=== PATIENT | male | born 1950 | race Caucasian/White ===

== ENCOUNTER 2024-12-08 00:40 | Inpatient (IN) | payer BC ==
[~2024-12-08] VITALS: Ht 180.3 cm; Wt 111.1 kg
[2024-12-08 01:07] LABS: BASOPHILS # (AUTO) 0.1 K/UL (0.0-0.2); BASOPHILS % (AUTO) 0.5 % (0.0-2.0); EOSINOPHILS # (AUTO) 0.1 K/uL (0.0-0.7); EOSINOPHILS % (AUTO) 0.6 % (0.0-7.0); HEMOGLOBIN 13.5 g/dL (12.5-16.3); LYMPHOCYTES # (AUTO) 0.8 K/uL (0.8-4.8); LYMPHOCYTES % (AUTO) 6.6 % (20.5-51.5); MEAN CORPUSCULAR HEMOGLOBIN 27.4 uug (23.8-33.4); MEAN CORPUSCULAR HGB CONC 34 g/dL (32.5-36.3); MEAN CORPUSCULAR VOLUME 81.3 fL (73.0-96.2); MONOCYTES # (AUTO) 0.7 K/uL (0.1-1.30); MONOCYTES % (AUTO) 6.1 % (0.0-11.0); NEUTROPHILS # (AUTO) 10.1 K/uL (1.8-8.9); NEUTROPHILS % (AUTO) 86.2 % (38.5-71.5); PLATELET COUNT (AUTO) 196 K/uL (152-348); RED BLOOD CELL COUNT(AUTO) 4.92 MIL/uL (4.06-5.63); RED CELL DISTRIBUTION WIDTH 14.9 % (12.1-16.2); WHITE BLOOD COUNT (AUTO) 11.7 K/uL (3.6-10.2)
[2024-12-08] MEDS ORDERED: DICYCLOMINE HCL LIQ 10 MG/5 ML UDC ONE (01:14)
[2024-12-08] MEDS ORDERED: ONDANSETRON 4 MG/2 ML VIAL ONE (01:14)
[2024-12-08] MEDS: ONDANSETRON 4 MG/2 ML VIAL IV ONE (01:16)
[2024-12-08] MEDS: DICYCLOMINE HCL LIQ 10 MG/5 ML UDC PO ONE (01:16)
[2024-12-08] MEDS: IV NORMAL SALINE 1000 ML BAG IV ONE (01:16)
[2024-12-08 01:17] LABS: DIFFERENTIAL COMMENT 1
[2024-12-08 01:27] LABS: ALANINE AMINOTRANSFERASE 25 U/L (16-63); ALBUMIN 3.9 g/dL (3.4-5.0); ALKALINE PHOSPHATASE 54 U/L (50-136); ASPARTATE AMINOTRANSFERASE 18 U/L (15-37); BILIRUBIN,DIRECT 0.3 mg/dL (0.0-0.2); BILIRUBIN,TOTAL 1.3 mg/dL (0.2-1.0); CALCIUM 9.5 mg/dL (8.5-10.1); CARBON DIOXIDE 26 mmol/L (21-32); CHLORIDE 103 mmol/L (98-107); CREATININE 1.4 mg/dL (0.6-1.3); GLUCOSE 120 mg/dL (74-106); POTASSIUM 4.2 mmol/L (3.5-5.1); SODIUM SERUM 140 mmol/L (136-145); TOTAL PROTEIN, SERUM 7.1 g/dL (6.4-8.2); UREA NITROGEN, BLOOD 22 mg/dL (7-18)
[2024-12-08] MEDS ORDERED: ACETAMINOPHEN 325 MG TABLET PO PRN (03:15)
[2024-12-08] MEDS ORDERED: ONDANSETRON 4 MG/2 ML VIAL IV PRN (03:15)
[2024-12-08] MEDS ORDERED: REMEDY ESSENTIAL ZINC PASTE 113 GM TP PRN (03:15)
[2024-12-08] MEDS ORDERED: MAGNESIUM HYDROXIDE 30 ML LIQUID UDC PO PRN (03:15)
[2024-12-08 05:49] VITALS: BP 129/58; TEMP 98.2; O2SAT 98
[2024-12-08 06:38] LABS: BASOPHILS % (AUTO) 0.5 % (0.0-2.0); EOSINOPHILS % (AUTO) 0.6 % (0.0-7.0); HEMATOCRIT 35.1 % (36.7-47.1); HEMOGLOBIN 12.1 g/dL (12.5-16.3); LYMPHOCYTES # (AUTO) 0.8 K/uL (0.8-4.8); LYMPHOCYTES % (AUTO) 11.1 % (20.5-51.5); MEAN CORPUSCULAR HEMOGLOBIN 28.3 uug (23.8-33.4); MEAN CORPUSCULAR HGB CONC 35 g/dL (32.5-36.3); MONOCYTES # (AUTO) 0.5 K/uL (0.1-1.30); MONOCYTES % (AUTO) 6.7 % (0.0-11.0); NEUTROPHILS # (AUTO) 6.2 K/uL (1.8-8.9); NEUTROPHILS % (AUTO) 81.1 % (38.5-71.5); PLATELET COUNT (AUTO) 182 K/uL (152-348); RED BLOOD CELL COUNT(AUTO) 4.28 MIL/uL (4.06-5.63); RED CELL DISTRIBUTION WIDTH 14.9 % (12.1-16.2); WHITE BLOOD COUNT (AUTO) 7.6 K/uL (3.6-10.2)
[2024-12-08 07:01] LABS: CARBON DIOXIDE 26 mmol/L (21-32); CHLORIDE 104 mmol/L (98-107); CREATININE 1.3 mg/dL (0.6-1.3); GLUCOSE 108 mg/dL (74-106); NT-PRO BNP 163 pg/mL (0-125); PHOSPHOROUS 3.4 mg/dL (2.5-4.9); POTASSIUM 3.8 mmol/L (3.5-5.1); SODIUM SERUM 132 mmol/L (136-145); UREA NITROGEN, BLOOD 23 mg/dL (7-18)
[2024-12-08 07:23] LABS: DIFFERENTIAL COMMENT 1
[2024-12-08 07:50] VITALS: BP 117/67; TEMP 98.3; O2SAT 99
[2024-12-08] MEDS: IV NS 1000 ML 1,000 ML IV PRN (08:38)
[2024-12-08 11:24] VITALS: BP 102/57; TEMP 97.6; O2SAT 98
[2024-12-08] MEDS ORDERED: PANT40TA49 PO (12:36)
[2024-12-08] MEDS ORDERED: FLUO20CA42 PO (12:36)
[2024-12-08] MEDS ORDERED: ATOR10TA PO (12:36)
[2024-12-08] MEDS ORDERED: TAMS-3 PO (12:36)
[2024-12-08] MEDS ORDERED: DUTA0.5C37 PO (12:36)
[2024-12-08] MEDS ORDERED: MEMA5TAB PO (12:36)
[2024-12-08] MEDS ORDERED: OLME40TA12 PO (12:36)
[2024-12-08] MEDS ORDERED: METO-357 PO (12:36)
[2024-12-08 16:00] VITALS: BP 124/61; TEMP 97.4; O2SAT 98
[2024-12-08] MEDS ORDERED: IBAN150T16 PO (17:50)
[2024-12-08] MEDS: VANCOMYCIN IV 1,000 MG in IV DEXTROSE 5% 250 ML IV SCH (17:53)
[2024-12-08 19:52] VITALS: BP 117/64; TEMP 98.3; O2SAT 95
[2024-12-08] MEDS: ATORVASTATIN 10 MG TABLET PO SCH (21:41)
[2024-12-08] MEDS: TAMSULOSIN HCL 0.4 MG CAP.SR.24H PO SCH (21:41)
[2024-12-08] MEDS: PIPERACILLIN SODIUM/TAZOBACTAM 3.375 G in IV DEXTROSE 5% 50 ML IV SCH (21:42)
[2024-12-09] VITALS: BP 139/71; TEMP 98.7; O2SAT 97
[2024-12-09 04:00] VITALS: BP 142/75; TEMP 98.2; O2SAT 98
[2024-12-09] MEDS: PANTOPRAZOLE SODIUM 40 MG TABLET.DR PO SCH (06:30)
[2024-12-09 07:12] LABS: BASOPHILS % (AUTO) 0.9 % (0.0-2.0); EOSINOPHILS # (AUTO) 0.2 K/uL (0.0-0.7); EOSINOPHILS % (AUTO) 4.2 % (0.0-7.0); HEMATOCRIT 30.8 % (36.7-47.1); HEMOGLOBIN 10.9 g/dL (12.5-16.3); LYMPHOCYTES # (AUTO) 1.2 K/uL (0.8-4.8); LYMPHOCYTES % (AUTO) 20.4 % (20.5-51.5); MEAN CORPUSCULAR HEMOGLOBIN 28.7 uug (23.8-33.4); MEAN CORPUSCULAR HGB CONC 35 g/dL (32.5-36.3); MEAN CORPUSCULAR VOLUME 81.2 fL (73.0-96.2); MONOCYTES # (AUTO) 0.6 K/uL (0.1-1.30); MONOCYTES % (AUTO) 10.1 % (0.0-11.0); NEUTROPHILS # (AUTO) 3.7 K/uL (1.8-8.9); NEUTROPHILS % (AUTO) 64.4 % (38.5-71.5); PLATELET COUNT (AUTO) 145 K/uL (152-348); RED BLOOD CELL COUNT(AUTO) 3.79 MIL/uL (4.06-5.63); RED CELL DISTRIBUTION WIDTH 15.1 % (12.1-16.2); WHITE BLOOD COUNT (AUTO) 5.7 K/uL (3.6-10.2)
[2024-12-09 07:21] LABS: ALANINE AMINOTRANSFERASE 21 U/L (16-63); ALBUMIN 3.1 g/dL (3.4-5.0); ALKALINE PHOSPHATASE 45 U/L (50-136); ASPARTATE AMINOTRANSFERASE 12 U/L (15-37); BILIRUBIN,DIRECT 0.3 mg/dL (0.0-0.2); CALCIUM 8.4 mg/dL (8.5-10.1); CARBON DIOXIDE 25 mmol/L (21-32); CHLORIDE 103 mmol/L (98-107); CHOLESTEROL 115 mg/dL (<200); CREATININE 1.1 mg/dL (0.6-1.3); GLUCOSE 94 mg/dL (74-106); HDL CHOLESTEROL 63 mg/dL (40-60); MAGNESIUM 1.8 mg/dL (1.8-2.4); PHOSPHOROUS 3.7 mg/dL (2.5-4.9); POTASSIUM 3.6 mmol/L (3.5-5.1); SODIUM SERUM 140 mmol/L (136-145); TOTAL PROTEIN, SERUM 6.1 g/dL (6.4-8.2); TRIGLYCERIDES 116 MG/DL (30-150); UREA NITROGEN, BLOOD 17 mg/dL (7-18)
[2024-12-09 07:36] LABS: DIFFERENTIAL COMMENT 1
[2024-12-09 08:05] LABS: CREATINE KINASE, TOTAL 64 U/L (39-308)
[2024-12-09] MEDS: DUTASTERIDE 0.5 MG CAPSULE PO SCH (08:19)
[2024-12-09 08:32] LABS: THYROID STIMULATING HORMONE 2.091 mIU/mL (0.358-3.740)
[2024-12-09] MEDS: METOPROLOL SUCCINATE XL 50 MG TAB.SR.24H PO SCH (08:33)
[2024-12-09] MEDS: FLUOXETINE HCL 20 MG CAPSULE PO SCH (08:33)
[2024-12-09] MEDS: MEMANTINE HCL 5 MG TABLET PO SCH (08:33)
[2024-12-09 15:22] VITALS: BP 136/88; TEMP 97.8; O2SAT 95
[2024-12-09 19:30] VITALS: BP 142/88; TEMP 98.4; O2SAT 96
[2024-12-10] VITALS: BP 120/73; TEMP 97.4; O2SAT 95
[2024-12-10 04:00] VITALS: BP 137/85; TEMP 97.9; O2SAT 97
[2024-12-10 06:57] LABS: BASOPHILS % (AUTO) 0.8 % (0.0-2.0); EOSINOPHILS # (AUTO) 0.3 K/uL (0.0-0.7); EOSINOPHILS % (AUTO) 5.6 % (0.0-7.0); HEMATOCRIT 31.4 % (36.7-47.1); HEMOGLOBIN 11.1 g/dL (12.5-16.3); LYMPHOCYTES # (AUTO) 1.2 K/uL (0.8-4.8); LYMPHOCYTES % (AUTO) 20.2 % (20.5-51.5); MEAN CORPUSCULAR HEMOGLOBIN 28.7 uug (23.8-33.4); MEAN CORPUSCULAR HGB CONC 35 g/dL (32.5-36.3); MEAN CORPUSCULAR VOLUME 81.2 fL (73.0-96.2); MONOCYTES # (AUTO) 0.6 K/uL (0.1-1.30); MONOCYTES % (AUTO) 11.3 % (0.0-11.0); NEUTROPHILS # (AUTO) 3.6 K/uL (1.8-8.9); NEUTROPHILS % (AUTO) 62.1 % (38.5-71.5); PLATELET COUNT (AUTO) 133 K/uL (152-348); RED BLOOD CELL COUNT(AUTO) 3.87 MIL/uL (4.06-5.63); RED CELL DISTRIBUTION WIDTH 15.3 % (12.1-16.2); WHITE BLOOD COUNT (AUTO) 5.7 K/uL (3.6-10.2)
[2024-12-10 07:01] LABS: DIFFERENTIAL COMMENT 1
[2024-12-10 07:25] LABS: CALCIUM 8.6 mg/dL (8.5-10.1); CARBON DIOXIDE 26 mmol/L (21-32); CHLORIDE 105 mmol/L (98-107); GLUCOSE 91 mg/dL (74-106); MAGNESIUM 1.7 mg/dL (1.8-2.4); PHOSPHOROUS 3.4 mg/dL (2.5-4.9); POTASSIUM 3.5 mmol/L (3.5-5.1); SODIUM SERUM 140 mmol/L (136-145); UREA NITROGEN, BLOOD 14 mg/dL (7-18)
[2024-12-10 07:31] VITALS: BP 121/76; TEMP 97.6; O2SAT 96
[2024-12-10] MEDS: VANCOMYCIN HCL 1,500 MG in IV DEXTROSE 5% 500 ML IV SCH (09:03)
[2024-12-10 11:06] LABS: PTH, INTACT 14 pg/mL (15-65)
[2024-12-10 11:17] VITALS: BP 126/69; TEMP 97.5; O2SAT 97
[2024-12-10] MEDS ORDERED: TAMS-3 PO (15:22)
[2024-12-10] MEDS ORDERED: CLIN300C12 PO (15:22)
[2024-12-10 16:03] VITALS: BP 131/79; TEMP 97.6; O2SAT 95
[2024-12-10] MEDS: MAGNESIUM OXIDE 400 MG TABLET PO ONE (17:09)
[2024-12-14 08:09] LABS: A/G RATIO 1.3 (0.7-1.7); ALBUMIN 3.1 g/dL (2.9-4.4); ALPHA-1-GLOBULIN 0.2 g/dL (0.0-0.4); ALPHA-2-GLOBULIN 0.8 g/dL (0.4-1.0); BETA GLOBULIN 0.8 g/dL (0.7-1.3); GAMMA GLOBULIN 0.5 g/dL (0.4-1.8); GLOBULIN, TOTAL 2.4 g/dL (2.2-3.9); M-SPIKE Not Observed g/dL (Not Observed); PROTEIN, TOTAL 5.5 g/dL (6.0-8.5)
== END 2024-12-10 17:38 | disposition home or self-care (01) | DRG 312 ==
LOC: ER 00:47 → TELE3 04:50 → MEDSURG3 12-10 08:50
PROVIDERS: ADMIT Nurse Practitioner Family; ATTEND Internal Medicine
DX: I95.2 Hypotension due to drugs (principal); N17.0 Acute kidney failure with tubular necrosis; L03.115 Cellulitis of right lower limb; L03.116 Cellulitis of left lower limb; T44.6X5A Adverse effect of alpha-adrenoreceptor antagonists, initial encounter; Y92.89 Other specified places as the place of occurrence of the external cause; E86.0 Dehydration; E66.9 Obesity, unspecified; Z68.34 Body mass index [BMI] 34.0-34.9, adult; N40.0 Benign prostatic hyperplasia without lower urinary tract symptoms; E78.5 Hyperlipidemia, unspecified; I44.1 Atrioventricular block, second degree; R11.2 Nausea with vomiting, unspecified; T50.995A Adverse effect of other drugs, medicaments and biological substances, initial encounter; Y92.009 Unspecified place in unspecified non-institutional (private) residence as the place of occurrence of the external cause; F32.A Depression, unspecified; G31.84 Mild cognitive impairment of uncertain or unknown etiology; I25.10 Atherosclerotic heart disease of native coronary artery without angina pectoris; D50.8 Other iron deficiency anemias; Z87.442 Personal history of urinary calculi; Z79.899 Other long term (current) drug therapy
CPT/HCPCS: 36415; 70450; 82378; 83735; 83970; 84100; 84155; 84165; 84443; 84484; 85025; 93005; 93307; 93880; C1758; G0378; J2405; J2543; J3370; J3371; J7040; J7050; J7060